=== PATIENT | male | born 1985 | race Caucasian/White ===

== ENCOUNTER 2017-05-13 05:17 | Emergency (ER) | payer MEDICAID ==
[~2017-05-13] VITALS: Ht 177.8 cm; Wt 86.2 kg
--- NOTE | 2017-05-13 05:18 | NUR ---
PT [facility]. TAKEN TO BED 5
--- NOTE | 2017-05-13 05:22 | NUR ---
client presents on a 5150 hold,as per ems,client took 7-8 advil,drank beer,and argue with ,this info was given by ,client stated that he only too tylenol pm 3 tabs.Urine/blood attained for med clearance
[2017-05-13 05:27] VITALS: BP 132/79
[2017-05-13 05:59] LABS: BASOPHILS # (AUTO) 0.3 K/uL (0.00-0.22); BASOPHILS % (AUTO) 3.5 % (0.0-2.0); EOSINOPHILS # (AUTO) 0.4 K/uL (0-0.4); EOSINOPHILS % (AUTO) 4.9 % (0.0-4.0); HEMATOCRIT 44.7 % (36-52); HEMOGLOBIN 15.2 g/dL (12.0-18.0); LYMPHOCYTES # (AUTO) 2.4 K/uL (2.0-11.5); LYMPHOCYTES % (AUTO) 30.2 % (20.5-51.1); MEAN CORPUSCULAR HEMOGLOBIN 30 pg (27-31); MEAN CORPUSCULAR HGB CONC 34 g/dL (33-37); MEAN CORPUSCULAR VOLUME 89 fL (80-94); MONOCYTES # (AUTO) 0.4 K/uL (0.8-1.0); MONOCYTES % (AUTO) 4.7 % (1.7-9.3); NEUTROPHILS # (AUTO) 4.3 K/uL (1.8-7.7); NEUTROPHILS % (AUTO) 56.7 % (42.2-75.2); PLATELET COUNT (AUTO) 250 K/uL (140-450); RED BLOOD CELL COUNT(AUTO) 5.02 MIL/uL (4.20-6.10); RED CELL DISTRIBUTION WIDTH 12.7 % (11.6-13.7)
[2017-05-13 06:05] LABS: ANION GAP 17.6 (8-16); CARBON DIOXIDE 22.1 mmol/L (21-32); CHLORIDE 106 mmol/L (98-107); GFR ARICAN-AMERICAN 110 mL/min (>90); GLUCOSE 92 mg/dL (74-106); POTASSIUM 3.7 mmol/L (3.5-5.1); SODIUM SERUM 142 mmol/L (136-145); UREA NITROGEN, BLOOD 13 mg/dL (7-18)
[2017-05-13 06:12] LABS: WHITE BLOOD COUNT (AUTO) 7.8 K/uL (4.8-10.8)
[2017-05-13 06:15] LABS: ACETAMINOPHEN 10.9 ug/ml (10-30); ALBUMIN 4.1 g/dL (3.4-5.0); ASPARTATE AMINOTRANSFERASE 38 U/L (15-37); TOTAL BILIRUBIN 0.3 mg/dL (0.0-1.0)
[2017-05-13 06:16] LABS: SALICYLATE < 2.8 mg/dL (2.8-20.0)
[2017-05-13 06:36] LABS: APPEARANCE,URINE CLEAR (CLEAR); BILIRUBIN,URINE NEGATIVE (NEGATIVE); BLOOD, URINE NEGATIVE (NEGATIVE); COLOR,URINE YELLOW (YELLOW); LEUKOCYTE ESTERASE ,URINE NEGATIVE (NEGATIVE); NITRITE, URINE NEGATIVE (NEGATIVE); PH,URINE 5.5 (5.0-9.0); UGLUCOSE NEGATIVE (NEGATIVE)
[2017-05-13 07:00] LABS: BARBITURATE, URINE NEG. ng/ml (NEG <=200); BENZODIAZEPINE, URINE NEG. ng/mL (NEG <=200); CANNABINOID, URINE POS. ng/mL (NEG <=50); COCAINE, URINE NEG. ng/mL (NEG <=300); OPIATE, URINE NEG. ng/mL (NEG <=2000); PHENCYCLIDINE SCREEN,URINE NEG. ng/mL (NEG <=25)
--- NOTE | 2017-05-13 07:28 | NUR ---
PATIENT MOVED TO BED 3 AT THIS TIME.
--- NOTE | 2017-05-13 07:30 | NUR ---
RECIEVED REPORT FROM ELASTIC ATTACHER COVERSTITCH NURSE ROBBIN RN; PT AA&OX4 AT THIS TIME; RR EVEN/UNLABORED; VSS; PT STATES NO IDEAS OF SUICIDAL IDEATION, HURTING SELF OR OTHERS AT THIS TIME; PT STATES TOOK 3 TYLENOL BECAUSE " I WAS TRYING TO GET SOME SLEEP. I JUST GOT OFF WORK"; PT CALM/COOPERATIVE AT THIS TIME; POSITIONED FOR COMFORT; SITTER IN PLACE; ALL POTENTIAL HARMFUL ITEMS REMOVED FROM ROOM; ER MD DR. WELLS NOTIFIED; WILL CONTINUE TO MONITOR.
--- NOTE | 2017-05-13 07:31 | NUR ---
report given to [facility] staff
--- NOTE | 2017-05-13 08:11 | NUR ---
[place] AT BEDSIDE.
--- NOTE | 2017-05-13 08:34 | NUR ---
PT APPEARS TO BE RESTING COMFORTABLY IN BED; VSS; RR EVEN/UNLABORED; SITTER AT BEDSIDE; WILL CONTINUE TO MONITOR.
--- NOTE | 2017-05-13 09:36 | NUR ---
PT APPEARS TO BE RESTING COMFORTABLY IN BED; VSS; RR EVEN/UNLABORED; SITTER AT BEDSIDE; WILL CONTINUE TO MONITOR.
--- NOTE | 2017-05-13 10:35 | NUR ---
PT APPEARS TO BE RESTING COMFORTABLY IN BED; VSS; RR EVEN/UNLABORED; SITTER AT BEDSIDE; WILL CONTINUE TO MONITOR.
--- NOTE | 2017-05-13 11:35 | NUR ---
PT APPEARS TO BE SLEEPING COMFORTABLY IN BED; VSS; RR EVEN/UNLABORED; SITTER AT BEDSIDE; WILL CONTINUE TO MONITOR.
--- NOTE | 2017-05-13 12:35 | NUR ---
PT APPEARS TO BE SLEEPING COMFORTABLY IN BED; VSS; RR EVEN/UNLABORED; SITTER AT BEDSIDE; WILL CONTINUE TO MONITOR.
--- NOTE | 2017-05-13 12:45 | NUR ---
DR. GALVAN EVALUATING PT AT BEDSIDE.
--- NOTE | 2017-05-13 13:10 | NUR ---
PT RELEASED FROM [address] GALVAN; ER MD DR. WELLS NOTIFIED.
[2017-05-13 13:22] VITALS: BP 116/73
--- NOTE | 2017-05-13 13:22 | NUR ---
Patient discharged with v/s stable. Written and verbal after care instructions given and explained. Patient verbalized understanding. Ambulatory with steady gait. All questions addressed prior to discharge. Advised to follow up with PMD.
== END 2017-05-13 13:22 | disposition home or self-care (01) ==
LOC: MED 05:17
DX: F31.9 Bipolar disorder, unspecified (principal); E11.9 Type 2 diabetes mellitus without complications; F17.200 Nicotine dependence, unspecified, uncomplicated
CPT/HCPCS: 36415; 80053; 80305; 81003; 85025; 99285; G0480; G0482

== ENCOUNTER 2018-01-08 00:49 | Inpatient (IN) | payer SELFPAY ==
[~2018-01-08] VITALS: Ht 172.7 cm; Wt 72.6 kg
[2018-01-08 00:50] VITALS: BP 137/94
--- NOTE | 2018-01-08 00:55 | NUR ---
PT BIBA DUE TO AN ARGUMENT WITH AND CALLED POLICE. A&O X4. RR EVEN AND UNLABORED. DENIES ANY PAIN. VSS AND NO ACUTE DISTRESS NOTED. PT STATED THAT HE DRANK 4 BOTTLES OF MALT LIQUOUR- PHILLIP COBRA AND HE AND HIS GOT INTO AN ARGUMENT AND SHE CALLED THE POLICE. PT STATED THAT HE STOPPED TAKING SEROQUEL AND WELLBUTRIN ABOUT A YEAR AGO. PT DENIES HEARING VOICES. PT DENIES FEELING/HAVING PLANS FOR HARMING HIMSELF NOR HARMING OTHERS. AFEBRILE. ER MADE AWARE.
--- NOTE | 2018-01-08 01:00 | NUR ---
Patient in hospital gown. Personal belongings removed from room and stored WITH [employer]UR[employer]. Patient desire to harm self or others. Potentially harmful items removed from room. Under direct observation of EMMY WEBER. Will continue to monitor.
--- NOTE | 2018-01-08 01:10 | NUR ---
DR. TERAN EVALUATING PT.
--- NOTE | 2018-01-08 02:05 | NUR ---
Patient appears to be resting comfortably in bed. Vital Signs within normal limits. Respirations even and unlabored.
--- NOTE | 2018-01-08 02:05 | NUR ---
LAB AT BEDSIDE
[2018-01-08 02:16] LABS: BASOPHILS # (AUTO) 0.1 K/uL (0.00-0.22); BASOPHILS % (AUTO) 1.1 % (0.0-2.0); EOSINOPHILS # (AUTO) 0.3 K/uL (0-0.4); EOSINOPHILS % (AUTO) 3.1 % (0.0-4.0); HEMATOCRIT 50.3 % (36-52); HEMOGLOBIN 16.7 g/dL (12.0-18.0); LYMPHOCYTES # (AUTO) 2.6 K/uL (2.0-11.5); LYMPHOCYTES % (AUTO) 31.9 % (20.5-51.1); MEAN CORPUSCULAR HEMOGLOBIN 31 pg (27-31); MEAN CORPUSCULAR HGB CONC 33 g/dL (33-37); MEAN CORPUSCULAR VOLUME 92.7 fL (80-94); MONOCYTES # (AUTO) 0.8 K/uL (0.8-1.0); MONOCYTES % (AUTO) 9.6 % (1.7-9.3); NEUTROPHILS # (AUTO) 4.5 K/uL (1.8-7.7); NEUTROPHILS % (AUTO) 54.3 % (42.2-75.2); PLATELET COUNT (AUTO) 220 K/uL (140-450); RED BLOOD CELL COUNT(AUTO) 5.42 MIL/uL (4.20-6.10); RED CELL DISTRIBUTION WIDTH 12.2 % (11.6-13.7); WHITE BLOOD COUNT (AUTO) 8.3 K/uL (4.8-10.8)
[2018-01-08 02:20] LABS: BARBITURATE, URINE NEG. ng/ml (NEG <=200); BENZODIAZEPINE, URINE NEG. ng/mL (NEG <=200); CANNABINOID, URINE POS. ng/mL (NEG <=50); COCAINE, URINE NEG. ng/mL (NEG <=300); OPIATE, URINE NEG. ng/mL (NEG <=2000); PHENCYCLIDINE SCREEN,URINE NEG. ng/mL (NEG <=25)
[2018-01-08 02:25] LABS: ANION GAP 20.5 (8-16); CARBON DIOXIDE 22.5 mmol/L (21-32); CREATININE 0.9 mg/dL (0.7-1.3)
--- NOTE | 2018-01-08 02:30 | NUR ---
PT CONTINUES TO BE UNDER DIRECT OBSERVATION BY GUS MCCLURE.
[2018-01-08 02:32] LABS: ALBUMIN 4.2 g/dL (3.4-5.0); TOTAL BILIRUBIN 0.4 mg/dL (0.0-1.0)
[2018-01-08 02:43] LABS: SALICYLATE 5.4 mg/dL (2.8-20.0)
[2018-01-08 02:44] LABS: CREATINE KINASE MB 1.4 ng/mL (0-3.6)
--- NOTE | 2018-01-08 03:36 | NUR ---
PT RESTING IN BED. VSS AND NO S/SX OF ACUTE DISTRESS. WILL CONTINUE TO MONITOR.
--- NOTE | 2018-01-08 04:09 | NUR ---
Faxing packet to [facility].
[2018-01-08] MEDS ORDERED: ACETAMINOPHEN 325 MG TAB PO PRN (04:40)
[2018-01-08] MEDS ORDERED: ONDANSETRON 4 MG/2 ML VIAL IM/IVP PRN (04:40)
[2018-01-08] MEDS ORDERED: DOCUSATE SODIUM 100 MG GELCAP PO PRN (04:40)
[2018-01-08] MEDS: NACL 0.9% 1,000 ML IV SCH ×3 (04:50→23:25)
--- NOTE | 2018-01-08 05:06 | NUR ---
Patient will be admitted to care of DR. CANDELARIO. Admited to TELEMETRY. Will go to room 106B. Belongings list completed AND BELONGINS WITH SECURITY. Report to MANISH CROSS.
[2018-01-08 05:10] VITALS: BP 138/88
--- NOTE | 2018-01-08 05:10 | NUR ---
PATIENT WAS ADMITTED TO THE UNIT FROM ER. PATIENT AWAKE, ALERT, ORIENTED AND AMBULATORY. PATIENT IS CALM AND COOPERATIVE. PATIENT ON ROOM AIR. NO SOB. PATIENT PLACED ON TELE MONITORING. BED LOWERED WITH CALL LIGHT WITHIN REACH. DR DUMONT PRESENT IN THE ROOM TO EVALUATE THE PATIENT. PATIENT WITH 1:1 SITTER
[2018-01-08] MEDS ORDERED: KETOROLAC 30 MG/ML VIAL IVP PRN (05:45)
[2018-01-08] MEDS ORDERED: LORazepam 2 MG/ML VIAL IVP PRN (06:35)
[2018-01-08] MEDS ORDERED: LORazepam 1 MG TAB PO PRN (06:35)
--- NOTE | 2018-01-08 07:22 | NUR ---
PATIENT REPORT GIVEN AT BEDSIDE. PATIENT ENDORSED IN STABLE CONDITION
--- NOTE | 2018-01-08 07:30 | NUR ---
RECEIVED REPORT FROM [employer] NURSE ABOUT THE PT, PT IS AWAKE LYING ON THE BED WITH A PERIPHERAL LINE AT LEFT AC G.20 WITH NS RUNNING AT 110ML/HR. SKIN IS INTACT, ALERT, ORIENTEDX4. NO SIGN OF DISTRESS NOTED AND PT IS ON A 1:1 SITTER. SIDE RAILS ARE UP. WILL MONITOR.
--- NOTE | 2018-01-08 07:50 | NUR ---
PT IS AWAKE LYING ON THE BED, VITAL SIGNS TAKEN, NO SIGN OF DISTRESS NOTED. 1:1 SITTER ON THE BEDSIDE. WILL MONITOR.
[2018-01-08 08:00] VITALS: BP 97/55
[2018-01-08] MEDS ORDERED: buPROPion 100 MG TAB PO SCH (09:00)
--- NOTE | 2018-01-08 09:10 | NUR ---
PT IS AWAKE AND IS LYING ON THE BED, MEDICATIONS GIVEN AND PT TOLERATED IT WELL, NO SIGN OF DISTRESS NOTED. WILL MONITOR. SITTER AT THE BEDSIDE.
[2018-01-08] MEDS: FOLIC ACID 1 MG TAB PO SCH (09:11)
[2018-01-08] MEDS: MULTIVITAMIN 1 TAB PO SCH (09:12)
[2018-01-08] MEDS: chlordiazePOXIDE 25 MG CAP PO SCH ×3 (09:14→18:36)
--- NOTE | 2018-01-08 09:30 | NUR ---
RECEIVED A CALL FROM CALVIN FROM LAB, ASKING FOR THE VERIFICATION OF THE ORDERS FOR THE ALCOHOL LEVEL TEST FOR THE PT., ACKNOWLEDGED INQUIRY AND WILL VERIFY WITH DOCTOR.
[2018-01-08 09:52] LABS: PROTHROMBIN TIME 10.3 secs (10.8-13.4)
[2018-01-08 10:03] LABS: CHOL/HDL RATIO 2.5 (1-4.5); FREE T4 (FREE THYROXINE) 1.16 ng/dL (0.76-1.46); MAGNESIUM 2.3 mg/dL (1.8-2.4); PHOSPHORUS 3.4 mg/dL (2.5-4.9); THYROID STIMULATING HORMONE 1.25 uIU/mL (0.34-3.74)
--- NOTE | 2018-01-08 10:30 | NUR ---
INFORMED DR. POOLE OF THE VERIFICATION OF THE BLOOD ALCOHOL TESTS THAT SHOULD BE DONE TO PT., DR. POOLE SAID THAT THE TEST SHOULD BE DONE AT 1000H AND 1800H TODAY. ORDERED VERIFIED AND RELAYED TO PBX TEACHERNICHOLAS ARITA.
--- NOTE | 2018-01-08 11:09 | NUR ---
NO UPDATES ON CONTACTED FACILITIES AT THIS TIME. WILL UPDATE FACILITY WHEN NEW INFORMATION HAS BEEN RECEIVED AND WILL CONTINUE TO LOOK FOR PLACEMENT FOR PATIENT.
[2018-01-08 12:00] VITALS: BP 123/69
--- NOTE | 2018-01-08 14:57 | NUR ---
PSYCH DOCTOR IS EVALUATING THE PT AT THIS TIME.
--- NOTE | 2018-01-08 16:05 | NUR ---
Called [facility] and [facility], said they are still reviewing charts, no vacancy at this time. Called [facility] and [facility], reviewing charts at this time. No contacted from contacted facilities at this time. will endorse to [employer] printing machinist to continue to search for placement.
--- NOTE | 2018-01-08 16:59 | NUR ---
DR. HUBBARD EVALUATED PT AND CLEARED PT FROM 5150 CRITERIA AND MAY BE DISCHARGED ONCE MEDICALLY CLEARED.
--- NOTE | 2018-01-08 19:20 | NUR ---
ENDORSED PT TO MASKING MACHINE FEEDER NURSE FOR CONTINUITY OF CARE. PT IS STABLE
--- NOTE | 2018-01-08 19:20 | NUR ---
RECEIVED PATIENT REPORT AT BEDSIDE. PATIENT AWAKE, ALERT AND ORIENTED. NO S/S OF DISTRESS. NO C/O PAIN. PATIENT CALM AND COLLECTED. BED LOWERED WITH CALL LIGHT WITHIN REACH. WILL CONTINUE TO MONITOR
[2018-01-08 19:56] VITALS: BP 112/70
--- NOTE | 2018-01-09 01:28 | NUR ---
PATIENT ASLEEP IN BED. NO S/S OF DISTRESS NOTED
[2018-01-09 06:39] LABS: BASOPHILS % (AUTO) 0.7 % (0.0-2.0); HEMATOCRIT 38.8 % (36-52); LYMPHOCYTES # (AUTO) 1.4 K/uL (2.0-11.5); LYMPHOCYTES % (AUTO) 22.9 % (20.5-51.1); MEAN CORPUSCULAR HEMOGLOBIN 32 pg (27-31); MEAN CORPUSCULAR HGB CONC 34 g/dL (33-37); MEAN CORPUSCULAR VOLUME 94.4 fL (80-94); MONOCYTES # (AUTO) 0.6 K/uL (0.8-1.0); MONOCYTES % (AUTO) 9.4 % (1.7-9.3); PLATELET COUNT (AUTO) 367 K/uL (140-450); RED BLOOD CELL COUNT(AUTO) 4.12 MIL/uL (4.20-6.10); RED CELL DISTRIBUTION WIDTH 13.9 % (11.6-13.7); WHITE BLOOD COUNT (AUTO) 5.9 K/uL (4.8-10.8)
--- NOTE | 2018-01-09 07:15 | NUR ---
PATIENT REPORT GIVEN AT BEDSIDE. PATIENT ENDORSED IN STABLE CONDITION
--- NOTE | 2018-01-09 07:16 | NUR ---
RECEIVED PT FROM PM NURSE. PT AOX4. INTRODUCED SELF TO THE PT. UPDATED PT BOARD. PT HAS NO SIGN OF DISTRESS. V/S ARE STABLE. PT COOPERATIVE AND AWAKE. PT SAFETY MEASURE IN PLACE. CALL LIGHT WITHIN REACH. BED AT LOWER POSITION. SIDE RAIL 2X UP. WILL CONTINUE TO MONITOR.
[2018-01-09 07:35] LABS: ANION GAP 13.2 (8-16); CARBON DIOXIDE 27.1 mmol/L (21-32); CREATININE 1.1 mg/dL (0.7-1.3); POTASSIUM 3.3 mmol/L (3.5-5.1)
[2018-01-09 08:00] VITALS: BP 112/77
[2018-01-09] MEDS ORDERED: LIB25 PO (09:10)
[2018-01-09] MEDS ORDERED: OSC500 PO (09:10)
[2018-01-09] MEDS ORDERED: VITB1I PO (09:10)
[2018-01-09] MEDS ORDERED: FOLI1TAB90 PO (09:10)
[2018-01-09] MEDS ORDERED: POTA10CE85 PO (09:10)
[2018-01-09] MEDS: MULTIVITAMIN 1 TAB PO SCH (09:37)
[2018-01-09] MEDS: FOLIC ACID 1 MG TAB PO SCH (09:37)
[2018-01-09] MEDS: chlordiazePOXIDE 25 MG CAP PO SCH (09:38)
[2018-01-09] MEDS ORDERED: LAMO25TA5 PO (10:01)
--- NOTE | 2018-01-09 12:20 | NUR ---
PT SITTING EATING LUNCH TRAY. NO SIGNS OF DISTRESS, AWARE FOR D/C TODAY. WILL CONTINUE TO MONITOR.
--- NOTE | 2018-01-09 12:35 | NUR ---
PATIENT HAS BEEN SCREENED AND CATEGORIZED LOW NUTRITION RISK. PATIENT WILL BE SEEN WITHIN 7 DAYS OF ADMISSION. 01/14/[address]
--- NOTE | 2018-01-09 14:24 | NUR ---
CM NOTE CHART REVIEW DONE
--- NOTE | 2018-01-09 14:30 | NUR ---
PT D/C TO GO HOME. GAVE D/C FORMS, INSTRUCTIONS, RX, LABS, AND FOLLOW UP APPOINTMENT. PT VERBALIZED UNDERSTANDING AND SIGNED FORMS. D/C IV TO L FA 20G. IV CATHETER TIP INTACT. APPLIED DRESSING AND PRESSURE TO SITE. NO BLEEDING NOTED. REMOVED ID BAND. PT RECEIVED ALL PERSONAL BELONGINGS FROM SECURITY. CHANGED IN OWN CLOTHES. LEFT WITH ALL PERSONAL BELONGINGS. LEFT UNIT VIA AMBULATION WITH STEADY GAIT. GAVE BUS PASS FOR RIDE. PER PT HAS NO RIDE HOME. LEFT IN STABLE CONDITION.
[2018-01-10 06:08] LABS: T4 (THYROXINE) 7.7 ug/dL (4.5-12.0)
== END 2018-01-09 14:30 | disposition home or self-care (01) | DRG 92 ==
LOC: MED 00:49 → MTU 04:31
PROVIDERS: ADMIT Family Medicine; ATTEND Family Medicine
DX: G92 Toxic encephalopathy (principal); F10.239 Alcohol dependence with withdrawal, unspecified; F15.20 Other stimulant dependence, uncomplicated; K70.9 Alcoholic liver disease, unspecified; F31.62 Bipolar disorder, current episode mixed, moderate; F12.90 Cannabis use, unspecified, uncomplicated; F29 Unspecified psychosis not due to a substance or known physiological condition; F41.0 Panic disorder [episodic paroxysmal anxiety]; E11.9 Type 2 diabetes mellitus without complications; F17.210 Nicotine dependence, cigarettes, uncomplicated
CPT/HCPCS: 36415; 71045; 76705; 80048; 80053; 80305; 82150; 82550; 82553; 83036; 83690; 83735; 83880; 84100; 84436; 84439; 84443; 84479; 84484; 85025; 85610; 85730; 87081; 93005; 99285; G0480; G0482; J7030; Q0092